=== PATIENT | male | born 2000 | race Caucasian/White ===

== ENCOUNTER 2020-02-19 14:35 | Emergency (ER) | payer OTHER, SELFPAY ==
[2020-02-19 14:45] VITALS: BP 152/80; PULSE 64; RESP 20; TEMP 36.2; O2SAT 100
--- NOTE | 2020-02-19 15:10 | ED.GENADULT ---
HPI - General Adult General Chief complaint: Wound/Laceration Stated complaint: laceration of left knee Source: patient Mode of arrival: ambulatory Limitations: no limitations History of Present Illness HPI narrative: 19 male. PMH includes: None reported. Presents to ED today with acute complaints of laceration to LLE. Pt reports to have been cutting wood with a saw , when saw slipped and caught his leg . Incident occurred immediately [employer]. Bleeding is controlled. He reports last Tetanus is UTD. No additional injury identified. Related Data Home Medications Medication Instructions Recorded Confirmed No Home Medications 02/19/20 02/19/20 Allergies Allergy/AdvReac Type Severity Reaction Status Date / Time No Known Allergies Allergy Verified 02/19/20 14:59 Review of Systems Review of Systems: Narrative: CONSTITUTIONAL: Denies fever, chills, sweats. EYES: Denies visual changes, redness, discharge. ENT: Denies rhinorrhea, congestion, sore throat, otalgia. CARDIOVASCULAR: Denies chest pain, palpitations, edema. RESPIRATORY: Denies dyspnea, wheezing, cough GASTROINTESTINAL: Denies abdominal pain, nausea, vomiting, diarrhea. GENITOURINARY: Denies dysuria, hematuria, abnormal discharge SKIN: Laceration LT lower leg. MUSCULOSKELETAL: Denies acute back pain, joint pain, or myalgia. NEUROLOGIC: Denies numbness, or focal weakness. PSYCHIATRIC: Denies anxiety or depression. Exam Narrative: Exam Narrative: GENERAL: This is a well-nourished, well-developed patient, in no apparent distress. HEAD: normocephalic, atraumatic. EYES: PERRL. Sclera clear/white. Vision is grossly intact. EARS: External ears normal, auditory canals clear and without drainage, TMs normal without perforation. Hearing grossly intact. NOSE: External nose normal with no obvious nasal discharge, nares without redness, no rhinorrhea. THROAT: Mucous membranes moist, posterior pharynx clear. NECK: Neck supple, non-tender without lymphadenopathy, masses or thyromegaly. CARDIOVASCULAR: Regular rate and rhythm without murmurs, gallops, or rubs. Pulses are preserved LLE. RESPIRATORY: Clear to auscultation. Breath sounds equal bilaterally. No wheezes, rales, or rhonchi. GASTROINTESTINAL: Abdomen soft, non-tender, nondistended. Bowel sounds are active. No hepato-splenomegaly, or palpable masses. No guarding. SKIN: No rash. Good turgor. With positive 2 cm laceration above RT knee. There is no deep tissue or tendon involvement. No obvious FB. Bleeding is controlled. NEURO: awake, alert, and oriented to person, place and time. There were no obvious focal neurologic abnormalities. Steady gait. Sensation is intact. EXTREMITIES: Full flexion and extension of all joints LLE. Course Course Emergency Course: I have discussed with this client that our plan of care today is to proceed with laceration repair. OP POC, AVS, And wound management has been reviewed. Procedure details discussed. Client has consented to procedure and voices no concerns. Vital Signs Vital signs: Vital Signs Temperature 36.2 C L 02/19/20 14:45 Pulse Rate 64 02/19/20 14:45 Respiratory Rate 02/19/20 14:45 Blood Pressure 152/80 H 02/19/20 14:45 Pulse Oximetry 100 02/19/20 14:45 Temperature 36.2 C L 02/19/20 14:45 Pulse Rate 64 02/19/20 14:45 Respiratory Rate 02/19/20 14:45 Blood Pressure 152/80 H 02/19/20 14:45 Pulse Oximetry 100 02/19/20 14:45 Procedures Laceration Laceration 1: Date: 02/19/20 Time: 15:17 Site: lower extremity Side (If applicable): left Size (cm): 2 Description: linear Depth: simple, single layer Local Anesthetic: lidocaine 1% Amount of anesthesia used (mL): 1 Pre-repair: wound explored, irrigated and irrigated extensively ====== Skin Level ====== Skin layer closed with: nylon Size (cm): 4-0 Number of sutures: 3 Technique: simple,
== END 2020-02-19 15:30 | disposition home or self-care (01) ==
PROVIDERS: Emergency Provider Nurse Practitioner Adult Health
DX: S71.112A Laceration without foreign body, left thigh, initial encounter (principal); W27.0XXA Contact with workbench tool, initial encounter
CPT/HCPCS: 12001; 99212; G0463

== ENCOUNTER 2022-08-06 16:46 | Emergency (ER) | payer OTHER, SELFPAY ==
[2022-08-06 16:59] VITALS: BP 136/83; PULSE 79; RESP 16; TEMP 36.8; O2SAT 99
--- NOTE | 2022-08-06 17:05 | ED.WOUNDLAC ---
HPI - Wound/Laceration General Chief Complaint: Wound/Laceration Stated Complaint: TICK BITE History of Present Illness HPI narrative: Pt is a 21 y/o male, presents to with migraine RAE, onset of symptoms Wednesday. He associates mild photophobia and nausea. He has hx of the same and endorses this migraine as typical for him however, he feels they usually resolve quicker. He does admit Excedrin has been successful in the past at relieving his migraine RAE however, he ran out and has not obtained more since this RAE began. He has instead, taking Ibuprofen which provides little relief. He states he subsequently found a tick to the right parietal scalp on Wednesday when his headache began and co workers encouraged him to seek evaluation. He has no other associated symptoms, no skin rashes or purulent drainage from the scalp, has developed a scab but otherwise no other skin concerns Related Data Allergies Allergy/AdvReac Type Severity Reaction Status Date / Time No Known Allergies Allergy Verified 08/06/22 16:58 Review of Systems Integumentary/Breasts: Comments: refer to HPI Neurologic: Comments: refer to HPI Exam Const: General: healthy appearing, no acute distress and alert HENMT: Ears: external ears normal and TM's normal bilaterally Face/Nose/Sinus: Normal external nose present Face and sinus: normal facial exam and sinuses nontender Mouth: Yes Normal oral and palatal mucosa present and Yes lip normal Throat: posterior oropharynx normal and uvula midline Other: right parietal scalp has a crusted lesion present. no drainage or bleeding. no erythema or rash appreciated Eyes: Conjunctivae: conjunctivae normal Pupils: Equal, round and reactive pupils present EOM: EOMs intact bilaterally Neck: Neck: normal visual inspection, no lymphadenopathy and no meningeal signs Resp: Effort & Inspection: normal respiratory effort Auscultation: clear to auscultation bilaterally Cardio: Rate: regular rate Rhythm: regular rhythm GI: GI Palp: Yes Soft to palpation, No Tenderness to palpation present (GI), No Guarding due to palpation present (GI), No Rigid due to palpation, No Hernia present, No Palpable mass present and No Rebound tenderness present Skin: General skin exam: normal color Other: refer to HENT exam, no rashes or erythema Neuro: General: patient oriented x3, moves all extremities, no meningeal signs, no focal motor deficits and CN's II-XI intact bilaterally Cranial nerves: Yes Nystagmus not present Speech: normal speech Gait exam (Neuro): Normal gait present Extrem: General: normal to inspection Psych: Mental Status: mental status grossly normal Course Course Emergency Course: Pt is reassured tick bite incubation period of 3-30 days does not correlate with RAE that began the day of his tick bite and given his hx of recurrent migraines with similar symptoms, he is encouraged to resume Excedrin at home; as this has worked well in the past with Promethazine added for nausea and migraine RAE relief as directed. He is encouraged to keep the scalp scabbed lesion clean and dry, to monitor for increased swelling, drainage or rash eruption (with assistance of family or friend) and to FU with his PCP with any further healing concerns. 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 Pt is agreeable with plan. Level of Care: Express Care Visit ([id number]) Discharge Plan Discharge Clinical Impression: Headache, migraine Qualifiers: Migraine type: without aura Status migrainosus presence: without status migrainosus Intractability: not intractable Qualified Code(s): G43.009 - Migraine without aura, not intractable, without status migrainosus Tick bite of scalp Qualifiers: Encounter type: initial encounter Qualified Code(s): S00.06XA - Insect bite
== END 2022-08-06 17:27 | disposition home or self-care (01) ==
PROVIDERS: Emergency Provider Nurse Practitioner Family
DX: G43.009 Migraine without aura, not intractable, without status migrainosus (principal); S00.06XA Insect bite (nonvenomous) of scalp, initial encounter; W57.XXXA Bitten or stung by nonvenomous insect and other nonvenomous arthropods, initial encounter
CPT/HCPCS: 99213; G0463